=== PATIENT | female | born 1985 | race African-American/Black ===

== ENCOUNTER 2021-04-14 22:45 | Emergency (ER) | payer OTHER ==
[~2021-04-14] VITALS: Ht 175.3 cm; Wt 72.6 kg
--- NOTE | 2021-04-14 22:59 | NUR ---
PANIC ATTACK AFTER ARUGMENT WITH S/O, STATES "SOB/ARM NUMBNESS" TO ER BED 2
[2021-04-14] MEDS ORDERED: LORAZEPAM 1 MG TABLET ONE (23:16)
[2021-04-14] MEDS ORDERED: LORAZEPAM 1 MG TABLET PO ONE (23:30)
[2021-04-15] MEDS ORDERED: LORA-259 PO (00:20)
[2021-04-15 00:24] VITALS: BP 132/92
== END 2021-04-15 00:24 | disposition home or self-care (01) ==
LOC: ER 22:49
DX: F41.0 Panic disorder [episodic paroxysmal anxiety] (principal); Z79.899 Other long term (current) drug therapy

== ENCOUNTER 2021-04-23 23:48 | Emergency (ER) | payer OTHER ==
[~2021-04-23] VITALS: Ht 175.3 cm; Wt 72.6 kg
[~2021-04-23 23:48] MED LIST: LORA-259 PO
--- NOTE | 2021-04-24 | NUR ---
PATIENT [id number] FROM HOME REPORTS OF ATTEMPTED SI, TOOK ABOUT 8-15 BENADRYL PILLS, BUT VOMITED ALL OF IT, STATED SI, DENIES HI. PATIENT IS A/O X 4, RR EVEN AND UNLABORED, NO SIGNS OF SOB NOTED. PATIENT CONNCETED TO [employer]PERATIONS SUPERVISOR AND POX. PATIENT PLACED IN GOWN, BELONGINGS TAKEN AND PLACED IN LOCKER. PHLEBPTPMIST AT BEDSIDE BLOOD WORK DONE. PATIENT IN NO ACUTE DISTRESS. WILL CONTINUE TO MONITOR.
--- NOTE | 2021-04-24 00:03 | NUR ---
[employer] AT BED SIDE
[2021-04-24 00:22] LABS: BASOPHILS % (AUTO) 0.6 % (0.0-2.0); HEMATOCRIT 38 % (33-45); HEMOGLOBIN 12.8 g/dL (11.5-14.8); LYMPHOCYTES # (AUTO) 2.8 K/uL (0.8-4.8); LYMPHOCYTES % (AUTO) 35.8 % (20.0-44.0); MEAN CORPUSCULAR HGB CONC 34 g/dl (31.0-36.0); MEAN CORPUSCULAR VOLUME 98 fL (82-100); MONOCYTES # (AUTO) 0.9 K/uL (0.1-1.30); MONOCYTES % (AUTO) 11.6 % (2.0-12.0); NEUTROPHILS # (AUTO) 3.6 K/uL (1.8-8.9); PLATELET COUNT (AUTO) 289 K/uL (150-450); RED BLOOD CELL COUNT(AUTO) 3.88 MIL/uL (4.0-5.2); WHITE BLOOD COUNT (AUTO) 7.9 K/uL (4.3-11.0)
[2021-04-24 00:32] LABS: ALANINE AMINOTRANSFERASE 31 U/L (12-78); ALBUMIN 3.4 g/dL (3.4-5.0); ALKALINE PHOSPHATASE 83 U/L (46-116); ASPARTATE AMINOTRANSFERASE 26 U/L (15-37); BILIRUBIN,DIRECT 0.1 mg/dL (0.0-0.2); BILIRUBIN,TOTAL 0.1 mg/dL (0.2-1.0); BILIRUBIN,URINE Negative (NEGATIVE); CALCIUM, SERUM 8.4 mg/dL (8.5-10.1); CARBON DIOXIDE 25 mmol/L (21-32); CHLORIDE 105 mmol/L (98-107); COLOR,URINE YELLOW (YELLOW); CREATININE 0.8 mg/dL (0.6-1.3); GLUCOSE 92 mg/dL (74-106); LEUKOCYTE ESTERASE ,URINE Trace (NEGATIVE); NITRITE, URINE Negative (NEGATIVE); PH,URINE 5.5 (5.0-8.0); POTASSIUM 3.3 mmol/L (3.5-5.1); PROTEIN,URINE Negative (NEGATIVE); SODIUM SERUM 141 mmol/L (136-145); TOTAL PROTEIN, SERUM 6.4 g/dL (6.4-8.2); UGLUCOSE Negative (NEGATIVE); UREA NITROGEN, BLOOD 9 mg/dL (7-18); UROBILINOGEN,URINE 0.2 EU/dL (0.2)
--- NOTE | 2021-04-24 00:33 | NUR ---
URINE COLLECTED AND SENT TO LAB
[2021-04-24 00:34] LABS: ACETAMINOPHEN < 0 ug/ml (10-30); ALCOHOL, BLOOD < 0 mg/dL (0-0)
[2021-04-24 00:38] LABS: RBC,URINE 0-2 /HPF (0-2)
[2021-04-24 00:39] LABS: BACTERIA,URINE Few /HPF (None Seen); SQUAMOUS EPITHELIAL CELL,UR Moderate /HPF (None Seen)
--- NOTE | 2021-04-24 03:00 | NUR ---
PATIENT IN BED SLEEPING, EASY TO AROSUE, PATIENT IN NO ACUTE DISTRESS. VSS, CONNECTED TO MONITOR. WILL CONTINUE TO MONITOR.
--- NOTE | 2021-04-24 04:51 | NUR ---
CALLED ART, CRISIS CLINITIAN, AND LEFT A VOICE MESSAGE
--- NOTE | 2021-04-24 04:55 | NUR ---
SPOKE TO ART GEOINT ANALYST, TARUN CROOK THE PT.
--- NOTE | 2021-04-24 06:02 | NUR ---
SEEN AND EVALUATED BY ART FROM CRISIS TEAM
--- NOTE | 2021-04-24 06:13 | NUR ---
PT IS MEDICALLY STABLE FOR D/C. Patient discharged to home in stable condition. Written and verbal after care instructions given. Patient verbalizes understanding of instruction.
[2021-04-24 06:14] VITALS: BP 117/68
== END 2021-04-24 06:21 | disposition home or self-care (01) ==
LOC: ER 23:51
DX: T45.0X2A Poisoning by antiallergic and antiemetic drugs, intentional self-harm, initial encounter (principal); Z79.899 Other long term (current) drug therapy; Y92.89 Other specified places as the place of occurrence of the external cause
CPT/HCPCS: 36415; 80048-TC; 80076-TC; 81001; 84703-TC; 85025-TC; G0480